=== PATIENT | male | born 1965 | race Caucasian/White ===

== ENCOUNTER 2022-04-26 11:35 | Outpatient (CLI) | payer OTHER, SELFPAY ==
[2022-04-26 11:54] LABS: Hematocrit 45.8 % (40.0-54.0); Hemoglobin 16.2 g/dL (14.0-18.0); Mean Corpuscular HGB Conc 35.4 g/dL (32.0-36.0); Mean Corpuscular Hemoglobin 31.8 pg (27.0-31.0); Mean Corpuscular Volume 89.8 fL (78.0-102.0); Mean Platelet Volume 9.4 fl (8.7-11.0); Platelet Count Result 338 K/mm3 (150-420); Red Cell Distribution Width 11.9 % (11.6-14.4); White Blood Count 5.8 K/mm3 (4.8-10.8)
[2022-04-26 12:16] LABS: Alanine Aminotransferase 40 U/L (16-63); Albumin Level 4.3 g/dL (3.4-5.0); Alkaline Phosphatase 75 U/L (46-116); Anion Gap 10 mmol/L (8-16); Aspartate Amino Transferase 31 U/L (15-37); Bilirubin,Total 0.5 mg/dL (0.00-1.00); Blood Urea Nitrogen 21 mg/dL (7-18); Calcium 8.8 mg/dL (8.5-10.1); Carbon Dioxide 26 mmol/L (21-32); Chloride 104 mmol/L (98-108); Cholesterol 204 mg/dL (0-200); Estimated Glomerular Filt Rate > 60; Glucose 99 mg/dL (70-99); HDL Direct 58 mg/dL (40-60); LDL Cholesterol Calculated 133 mg/dL (<130); Osmolality Calculated 293 mOsm/kg (285-295); Potassium 4.1 mmol/L (3.5-5.1); Sodium 140 mmol/L (136-145); Total Protein 7.9 g/dL (6.4-8.2); Triglycerides 66 mg/dL (0-150)
== END 2022-04-26 11:36 | disposition home or self-care (01) ==
PROVIDERS: PCP Family Medicine; Visit Provider Family Medicine
DX: Z00.00 Encounter for general adult medical examination without abnormal findings (principal)
CPT/HCPCS: 36415; 80053; 80061; 85027

== ENCOUNTER 2023-05-02 21:17 | Emergency (ER) | payer OTHER, SELFPAY ==
--- NOTE | ~2023-05-02 | XR_ITS ---
EXAM: XR lumbar spine 2-3V DATE: 05/02/2023 22:05 HISTORY: pain . COMPARISON: 08/29/2014. FINDINGS: 5 nonrib-bearing lumbar-type vertebral bodies. Pedicles intact. 3 mm retrolisthesis at L2- 3. 4 mm anterolisthesis at L4-5. Mild anterior wedge deformity at L1. Multilevel disc space narrowing , severe at L5-S1, moderate at the remaining levels. Multiple large bridging anterior osteophytes. Mo derate-severe lower lumbar facet hypertrophy and sclerosis. IMPRESSION: Mild anterior wedge deformity at L1 may represent an acute or chronic wedge compression f racture. Correlate with pain/tenderness. Multilevel grade 1 listheses. Multilevel degenerative disc d isease and facet arthropathy. Reviewed, dictated and finalized at location K. [facility] SPECIALIST IMPRESSION: Mild anterior wedge deformity at L1 may represent an acute or chron ic wedge compression fracture. Correlate with pain/tenderness. Multilevel grade 1 listheses. Multilevel degenerative disc disease and facet arthropathy.
--- NOTE | 2023-05-02 21:22 | ED.BACK ---
HPI - Back Pain/Injury General Chief Complaint: Urogenital-Male Stated Complaint: R Leg pain Time Seen by Provider: 05/02/23 21:19 Source: patient Mode of arrival: ambulatory Limitations: no limitations History of Present Illness HPI Narrative: Patient is a 57-year-old male with lower back pain over the past few weeks. Particularly tonight though he has complains of a few days history of buttocks pain on the right that radiates down to the right thigh. He also noticed some darker urine. MD elicited complaint: back pain Pertinent past history: prior back pain and other ( Chronic lumbar issues on the left with disc disease; abhijeet's complaint is on the right) Onset (ago): day(s) (3) Timing: intermittent Severity: moderate Pain scale (0-10): 6 Similar Symptoms Previously: Yes Quality: burning and sharp Location: lumbar spine Radiation: right upper leg ( thigh) Exacerbating factors: movement and other ( sliding on his bottom) Relieving factors: immobilization Context: turning/twisting Associated symptoms: denies other symptoms Treatments prior to arrival: NSAIDS and acetaminophen Related Data Allergies Allergy/AdvReac Type Severity Reaction Status Date / Time No Known Allergies Allergy Unverified 04/26/22 11:15 Review of Systems Review of Systems: All systems reviewed & are unremarkable except as noted in HPI and below Constitutional: Constitutional: Reports no additional constitutional complaints Eyes: Eyes: Reports no additional eye complaints ENT: Reports system reviewed and no additional complaints, except as documented Cardiovascular: Cardiovascular: Reports no additional cardiovascular complaints Respiratory: Respiratory: Reports no additional respiratory complaints Gastrointestinal: Gastrointestinal: Reports no additional gastrointestinal complaints Genitourinary: Genitourinary: Reports no additional male genitourinary complaints Musculoskeletal: Musculoskeletal: Reports no additional musculoskeletal complaints Integumentary/Breasts: Skin/Breast: Reports system reviewed and no additional complaints, except as docu Neurologic: Reports system reviewed and no additional complaints, except as documented Psychiatric: Psychiatric: Reports no additional psychiatric complaints Endocrine: Endocrine: Reports no additional endocrine complaints Hematologic/Lymphatic: Hematologic/Lymphatic: Reports no additional hematologic/lymphatic complaints Allergic/Immunologic: Allergic/Immunologic: Reports no additional allergic/immunologic complaints PMFSH Surgical History Surgical History No history of previous surgery Family History Family History Father Family history of type 2 diabetes mellitus Mother Family history of type 2 diabetes mellitus Social History Social History Smoking status: Never smoker Substance use: current Substance use type: marijuana Exam Const: General: healthy appearing Nutritional Appearance: well nourished Orientation/consciousness: patient oriented x3 HENMT: Head: normal to inspection Ears: external ears normal Face/Nose/Sinus: Normal external nose present Eyes: Conjunctivae: conjunctivae normal Pupils: Equal, round and reactive pupils present EOM: EOMs intact bilaterally Neck: Neck: normal visual inspection Chest: Chest palpation & inspection: normal inspection of the chest Resp: Effort & Inspection: normal respiratory effort and not labored Auscultation: clear to auscultation bilaterally and no crackles Cardio: Rate: regular rate Rhythm: regular rhythm Heart sounds: no murmurs GI: Inspection: non-distended GI Palp: Yes Soft to palpation and No Tenderness to palpation present (GI) Auscultation: normal bowel sounds : General: Yes bladder normal to palpation Back/Spine/Pelvis: Back: no CVA t
[2023-05-02 21:29] LABS: Appearance Urine Clear (Clear); Bilirubin Urine Negative (Negative); Blood Urine Negative (Negative); Color Urine Yellow (Yellow); Glucose Urine UA Negative (Negative); Ketones Urine Negative (Negative); Leukocyte Esterase Ur Negative LEU/UL (Negative); Nitrate Urine Negative (Negative); Protein Urine Negative (Negative); Specific Grav Ur >= 1.030 (1.010-1.020); Urobilinogen Urine 0.2 mg/dL (0.2-1.0)
[2023-05-02 21:30] LABS: Add Urine Microscopic? NO
[2023-05-02] MEDS: methylPREDNISolone SOD SUCC 125 MG VIAL IM (21:55)
[2023-05-02] MEDS: HYDROcodone/acetaminophen (*CRX) 5-325 MG TABLET 1 TAB PO (21:55)
[2023-05-02 22:02] VITALS: BP 179/97; PULSE 89; RESP 18; TEMP 36.9; O2SAT 90
== END 2023-05-02 22:24 | disposition home or self-care (01) ==
PROVIDERS: Emergency Provider Emergency Medicine; PCP Nurse Practitioner Family
DX: G57.00 Lesion of sciatic nerve, unspecified lower limb (principal); M48.56XA Collapsed vertebra, not elsewhere classified, lumbar region, initial encounter for fracture
CPT/HCPCS: 72100; 81003; 96372; 99283; A9270; J2930

== ENCOUNTER 2023-05-09 15:45 | Outpatient (CLI) | payer OTHER, SELFPAY ==
[2023-05-09 16:36] LABS: Basophils Absolute Auto 0.02 K/mm3 (0.00-0.10); Basophils Percent Auto 0.2 % (0.0-1.0); Eosinophils Absolute Auto 0.25 K/mm3 (0.02-0.50); Eosinophils Percent Auto 2.7 % (1.0-6.0); Hematocrit 48.2 % (40.0-54.0); Hemoglobin 16.4 g/dL (14.0-18.0); Immature Granulocyte Absolute 0.03 K/mm3 (0.00-0.00); Immature Granulocyte Percent A 0.3 % (0.0-0.0); Lymphocytes Absolute Auto 4.14 K/mm3 (1.10-4.50); Lymphocytes Percent Auto 45.3 % (18.0-42.0); Mean Corpuscular Hemoglobin 30.7 pg (27.0-31.0); Mean Corpuscular Volume 90.3 fL (78.0-102.0); Mean Platelet Volume 9.5 fl (8.7-11.0); Monocytes Absolute Auto 0.86 K/mm3 (0.10-0.90); Monocytes Percent Auto 9.4 % (2.0-11.0); Neutrophils Absolute Auto 3.8 K/mm3 (1.7-7.2); Neutrophils Percent Auto 42.1 % (50.0-70.0); Platelet Count Result 388 K/mm3 (150-420); Red Blood Count 5.34 M/mm3 (4.70-6.10); Red Cell Distribution Width 12.3 % (11.6-14.4); White Blood Count 9.1 K/mm3 (4.8-10.8)
[2023-05-09 17:41] LABS: Alanine Aminotransferase 37 U/L (16-63); Albumin Level 4.3 g/dL (3.4-5.0); Alkaline Phosphatase 70 U/L (46-116); Anion Gap 8 mmol/L (8-16); Aspartate Amino Transferase 25 U/L (15-37); Bilirubin,Total 0.3 mg/dL (0.00-1.00); Blood Urea Nitrogen 29 mg/dL (7-18); Carbon Dioxide 31 mmol/L (21-32); Chloride 98 mmol/L (98-108); Cholesterol 184 mg/dL (0-200); Estimated Glomerular Filt Rate > 60; Glucose 83 mg/dL (70-99); HDL Direct 69 mg/dL (40-60); LDL Cholesterol Calculated 72 mg/dL (<130); Osmolality Calculated 288 mOsm/kg (285-295); Potassium 4.5 mmol/L (3.5-5.1); Sodium 137 mmol/L (136-145); Total Protein 7.5 g/dL (6.4-8.2); Triglycerides 216 mg/dL (0-150)
[2023-05-11 09:47] LABS: Free T3 3.96 pg/mL (2.18-3.98); Free T4 Free Thyroxine 1.21 ng/dL (0.76-1.46)
== END 2023-05-09 15:46 | disposition home or self-care (01) ==
LOC: CHSLAB 15:46
PROVIDERS: PCP Nurse Practitioner Family; Visit Provider Nurse Practitioner Family
DX: Z00.00 Encounter for general adult medical examination without abnormal findings (principal); R79.89 Other specified abnormal findings of blood chemistry
CPT/HCPCS: 36415; 80053; 80061; 84439; 84443; 84481; 85025

== ENCOUNTER 2023-05-23 05:03 | Emergency (ER) | payer OTHER, SELFPAY ==
[2023-05-23 05:06] VITALS: BP 160/117; PULSE 108; PULSE 113; RESP 18; TEMP 36.2; O2SAT 99
--- NOTE | 2023-05-23 05:20 | ED.BACK ---
HPI - Back Pain/Injury General Chief Complaint: Back Pain/Injury Stated Complaint: back pain Time Seen by Provider: 05/23/23 05:05 History of Present Illness HPI Narrative: This is a 57-year-old male with history of L1 compression fracture, presents to the emergency department complaining chronic low back pain. The patient describes the pain as dull and burning with radiation to the right leg. He complains some numbness to the proximal right thigh though denies other loss of sensation loss of bowel or bladder control or fevers with back pain. He states he recently ran out of a [place] prescription. He requests a refill. He states he last took the medication, as well as a muscle relaxer approximately 5 hours ago. Related Data Allergies Allergy/AdvReac Type Severity Reaction Status Date / Time No Known Allergies Allergy Verified 05/23/23 05:14 Review of Systems Review of Systems: CONSTITUTIONAL: Denies fever, chills, or sweats. CARDIOVASCULAR: Denies chest pain, palpitations, or edema. RESPIRATORY: Denies cough or dyspnea. GASTROINTESTINAL: Denies abdominal pain, nausea, vomiting, or diarrhea. GENITOURINARY: Denies dysuria or hematuria. SKIN: Denies rash or itching. MUSCULOSKELETAL: Low back pain Denies joint pain, or myalgia. NEUROLOGIC: Denies headache, numbness, dizziness, or weakness. PSYCHIATRIC: Denies anxiety or depression. PMFSH Past Medical History Medical History Compression fx, lumbar spine Low back pain (12/08/16) Surgical History Surgical History No history of previous surgery Family History Family History Father Family history of type 2 diabetes mellitus Mother Family history of type 2 diabetes mellitus Cancer of kidney Social History Social History Smoking status: Never smoker Substance use: current Substance use type: marijuana Other substance usage details: has been smoking for 38 years approximately Exam Narrative: GENERAL: Well-developed, well-nourished, appears uncomfortable HEAD: Normocephalic, atraumatic. EYES: PERRLA and EOMI. CHEST: Clear to auscultation. No respiratory distress. No wheezes rales or rhonchi HEART: Regular rate and rhythm. No murmur heard. Normal peripheral pulses. BACK: No midline spine tenderness to palpation, no step-off or crepitus EXTREMITIES: Normal range of motion. No edema. SKIN: Warm, dry, no rash. NEURO: Alert and oriented x3. No focal deficit. Moving all 4 limbs spontaneously PSYCH: Normal mood and affect. Course Course Emergency Course: 05:20 - Review of [facility] demonstrates the patient has had a refill of opioids once a week for the past 3 weeks. I am concerned that he may be developing a tolerance for and dependence on opioid medications. Will provide Toradol and a lower dose of tramadol now and discharge with lidocaine patches, gabapentin, recommendation to continue muscle relaxers and a shortened course of Endocet. I advised the patient to try to begin reducing use of opioids. Discussed return and emergency precautions including signs/symptoms of cauda equina and epidural abscess. The patient voiced understanding and agreement with the plan. All questions answered to his satisfaction. Vital Signs Vital signs: Vital Signs Temperature 97.1 F L 05/23/23 05:06 Pulse Rate 108 H 05/23/23 05:06 Respiratory Rate 18 05/23/23 05:06 Blood Pressure 160/117 H 05/23/23 05:06 Pulse Oximetry 99 05/23/23 05:06 Oxygen Delivery Room Air 05/23/23 05:06 Temperature 97.1 F L 05/23/23 05:06 Pulse Rate 108 H 05/23/23 05:06 Respiratory Rate 18 05/23/23 05:06 Blood Pressure 160/117 H 05/23/23 05:06 Pulse Oximetry 99 05/23/23 05:06 Oxygen Delivery Room Air 05/23/23 05:06 MDM - Back
[2023-05-23] MEDS: traMADol HCL (*CRX) 25 MG TABLET PO (05:30)
[2023-05-23] MEDS: KETOROLAC 30 MG/ML VIAL (*BKC) IM (05:31)
--- NOTE | 2023-05-23 05:36 | PC.NURSE ---
patient awake and alert, medicated for pain, see MAR.
[2023-05-23 06:11] VITALS: BP 148/111
== END 2023-05-23 06:12 | disposition home or self-care (01) ==
PROVIDERS: Emergency Provider Preventive Medicine Aerospace Medicine; PCP Family Medicine
DX: S32.010D Wedge compression fracture of first lumbar vertebra, subsequent encounter for fracture with routine healing (principal); M54.41 Lumbago with sciatica, right side; G89.29 Other chronic pain
CPT/HCPCS: 96372; 99283; A9270; J1885

== ENCOUNTER 2023-05-26 15:01 | Outpatient (RCR) | payer OTHER, SELFPAY ==
--- NOTE | 2023-05-26 17:12 | OPREHPOC ---
Outpatient Therapy Plan of Care This is a Multidisciplinary Plan of Care that may contain components documented by all disciplines (PT, OT, and ST.) PT Problem 1 PT Problem #1 Knowledge Deficit PT Goal 1 Goal Patient to demonstrate independence with HEP Target Visit 5 PT Problem 2 PT Problem #2 Pain PT Goal 1 Goal 1. Patient to report highest pain at 2/10 2. Patient to report ability to sleep with no disturbance due to low back pain Target Visit 10 PT Problem 3 PT Problem #3 Impaired Strength PT Goal 1 Goal Patient to demonstrate 5/5 strength of the R LE to return to stair navigation at PLOF Target Visit 10 PT Problem 4 PT Problem #4 Impaired Functional Mobil PT Goal 1 Goal 1. patient to demonstrate less than 20% disability on Back Index 2. Patient to report ability to complete house hold tasks without pain radiating to the R LE 3. Patient to demonstrate ability to reach to floor to last picker objects Target Visit 10
--- NOTE | 2023-05-26 17:12 | PTOPEVAL1 ---
Assessment and note entered by Carol Pleitez DPT Evaluation Information Assessment Status Evaluation Diagnosis low back pain Onset 05/11/23 Subjective Information Patient reports a few weeks ago he starting having shooting pain down the R LE with low back pain and had to go to the ER where he was told his sciatic nerve was pinched. He also has a S1 compression fracture. He reports LE pain is down the back of the thigh, to the knee and down the R brad[place]. He reports tingling toes in the R foot. Patient reports increased pain with sitting in chair, sleeping, walking prolonged distances and completing house hold tasks. He reports he helps his daughter with house hold chores. RTMD in ~ 1 week. He reports he was given lidocaine patches that have helped pain. Reported Pain Level Pain Score 4,6: Self Report Assessment PT Clinical Summary Mr. Cabrera is a 57 year old male who presents to PT with low back and R LE radiating pain. He demonstrates decreased R LE strength, decreased R LE flexibility and positive slump test on the R indicating possible sciatic nerve root involvement . 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 He would benefit from skilled PT to address impairments and return to PLOF. Plan of Care Interventions Electrical Stimulation,Gait Training,Hot Pack/Cold Pack,Manual Therapy,Mechanical Traction,Neuro Re- education PT Services Indicated Yes Treatment Frequency and 2x weekly for 10 visits Duration These treatments will address the objective and functional deficits as defined above. The patient will be advanced safely and appropriately in order for the patient to progress towards his/her prior level of function. Additional exercises will be introduced and as well as a comprehensive home exercise program upon discharge, if needed, ?to ensure carryover of functional gains achieved in the clinic. This treatment plan has been reviewed and agreement upon by the patient.
== END 2023-05-31 20:00 | disposition home or self-care (01) ==
LOC: CHSPT 15:01
PROVIDERS: Visit Provider Nurse Practitioner Family
DX: M54.50 Low back pain, unspecified (principal); G57.00 Lesion of sciatic nerve, unspecified lower limb
CPT/HCPCS: 97014; 97110; 97140; 97161; G0283

== ENCOUNTER 2023-10-20 11:18 | Outpatient (CLI) | payer OTHER, SELFPAY ==
[2023-10-20 11:35] LABS: Add Urine Microscopic? YES; Appearance Urine Clear (Clear); Bilirubin Urine Negative (Negative); Blood Urine 3+ (Negative); Color Urine Light Yellow (Yellow); Glucose Urine UA Negative (Negative); Ketones Urine Negative (Negative); Leukocyte Esterase Ur Negative (Negative); Nitrate Urine Negative (Negative); Protein Urine Negative (Negative); Urobilinogen Urine 0.2 mg/dL (0.2-1.0); pH Urine 7.5 (5.0-8.0)
[2023-10-20 11:41] LABS: Bacteria Urine Trace /hpf; Squamous Epithelial Cell Urine Rare /hpf (Few); WBC Urine None seen /hpf (0-3)
== END 2023-10-20 11:19 | disposition home or self-care (01) ==
LOC: CHSLAB 11:21
PROVIDERS: PCP Family Medicine; Visit Provider Family Medicine
DX: N39.0 Urinary tract infection, site not specified (principal)
CPT/HCPCS: 81001

== ENCOUNTER 2024-11-20 07:20 | Outpatient (CLI) | payer OTHER, SELFPAY ==
--- NOTE | ~2024-11-20 | US_ITS ---
US venous doppler [facility] - 11/20/2024 8:07 CDT History: 59 years old Male with left lower extremity pain and swelling. Real-time sonographic images of the left lower extremity venous system were obtained. Color Doppler sonography and spectral waveform analysis were performed. No prior studies for comparison. The left sapheno-femoral junctions are patent. The left common femoral, superficial femoral, popliteal and posterior tibial veins are compressible and without evidence of echogenic thrombus. Impression: No evidence of deep venous thrombosis Reviewed, dictated and finalized at location N. Impression: No evidence of deep venous thrombosis
[2024-11-20 07:54] LABS: Hematocrit 46.2 % (40.0-54.0); Hemoglobin 15.7 g/dL (14.0-18.0); Immature Granulocyte Percent A 0.3 % (0.0-0.0); Lymphocytes Absolute Auto 2.99 K/mm3 (1.10-4.50); Mean Corpuscular HGB Conc 34.0 g/dL (32-36); Mean Corpuscular Hemoglobin 30.9 pg (27.0-31.0); Mean Corpuscular Volume 90.9 fL (78.0-102.0); Nucleated Red Blood Cells Absolute Auto 0.00 K/mm3 (0.00-0.00); Nucleated Red Blood Cells Perc 0.0 % (0-0.0); Platelet Count Result 303 K/mm3 (150-420); Red Blood Count 5.08 M/mm3 (4.70-6.10); White Blood Count 7.5 K/mm3 (4.8-10.8)
[2024-11-20 08:18] LABS: Alanine Aminotransferase 45 U/L (6-50); Albumin Level 4.6 g/dL (3.5-5.1); Alkaline Phosphatase 66 U/L (38-126); Anion Gap 9 mmol/L (4-12); Aspartate Amino Transferase 42 U/L (17-59); Bilirubin,Total 0.7 mg/dL (0.2-1.3); Blood Urea Nitrogen 18 mg/dL (9-20); Calcium 10.1 mg/dL (8.4-10.2); Carbon Dioxide 29 mmol/L (22-30); Chloride 103 mmol/L (98-107); Cholesterol 203 mg/dL (0-200); Estimated Glomerular Filt Rate > 60; Glucose 95 mg/dL (65-110); HDL Direct 69 mg/dL; Osmolality Calculated 293 mOsm/kg (285-295); Potassium 5.0 mmol/L (3.4-5.0); Sodium 141 mmol/L (137-145); Total Protein 8.5 g/dL (6.3-8.2); Triglycerides 80 mg/dL (<150)
[2024-11-20 08:19] LABS: Hemoglobin A1C 5.5 % (<5.7)
[2024-11-20 08:48] LABS: Prostate Specific Antigen 1.0 ng/mL (< OR = 4.0); Thyroid Stimulating Hormone Reflex 3.320 uIU/mL (0.465-4.68)
== END 2024-11-20 07:21 | disposition home or self-care (01) ==
LOC: CHSIMG 07:22
PROVIDERS: PCP Family Medicine; Visit Provider Nurse Practitioner Family
DX: R22.42 Localized swelling, mass and lump, left lower limb (principal); Z00.00 Encounter for general adult medical examination without abnormal findings; Z12.5 Encounter for screening for malignant neoplasm of prostate
CPT/HCPCS: 36415; 80053; 80061; 83036; 84153; 84443; 85025; 93971; G0103